=== PATIENT | female | born 1935 | race Caucasian/White ===

== ENCOUNTER 2023-02-19 19:45 | Outpatient (CLI) | payer MEDICARE, BC, SELFPAY | END 2023-02-19 19:46 | disposition home or self-care (01) | LOC: AMB 03-20 10:32 | PROVIDERS: PCP Internal Medicine; Visit Provider Family Medicine | DX: S12.9XXS Fracture of neck, unspecified, sequela (principal) | CPT/HCPCS: A0425; A0428 ==